=== PATIENT | female | born 1955 | race Two or more races ===

== ENCOUNTER 2017-12-30 07:09 | Emergency (ER) | payer OTHER ==
[~2017-12-30] VITALS: Ht 170.2 cm; Wt 72.6 kg
[2017-12-30] MEDS ORDERED: SYNTHROID200 MCG (07:44)
[2017-12-30] MEDS ORDERED: MEDROLPACK PO (11:49)
[2017-12-30] MEDS ORDERED: ZYRTEC10 MG PO (11:49)
== END 2017-12-30 11:58 | disposition home or self-care (01) ==
LOC: ER 07:09
DX: B34.9 Viral infection, unspecified (principal)

== ENCOUNTER 2018-10-07 12:07 | Emergency (ER) | payer OTHER ==
[~2018-10-07] VITALS: Ht 167.6 cm; Wt 68.0 kg
[~2018-10-07 12:07] MED LIST: MEDROLPACK PO; SYNTHROID200 MCG; ZYRTEC10 MG PO
== END 2018-10-07 18:47 | disposition home or self-care (01) ==
LOC: ER 12:07
DX: R42 Dizziness and giddiness (principal); R07.89 Other chest pain; M43.6 Torticollis

== ENCOUNTER 2022-02-11 09:30 | Inpatient (IN) | payer OTHER ==
[~2022-02-11] VITALS: Ht 167.6 cm; Wt 62.6 kg
[~2022-02-11 09:30] MED LIST changes: -SYNTHROID200 MCG; +SYNTHROID200 MCG PO
[2022-02-11] MEDS ORDERED: NORVASC5 MG PO (14:50)
[2022-02-18] MEDS ORDERED: PANTOPRAZOLE SO40 MG (09:04)
[2022-02-18] MEDS ORDERED: METFORMIN HCL500 M4 (09:04)
[2022-02-18] MEDS ORDERED: ROSUVASTATIN CA20 MG (09:04)
[2022-02-18] MEDS ORDERED: BUSPIRONE HCL5 MG (09:04)
[2022-02-18] MEDS ORDERED: MAXIMUM D3325 MCG (09:04)
[2022-02-18] MEDS ORDERED: QUETIAPINE FUMA25 MG (09:04)
[2022-02-18] MEDS ORDERED: SERTRALINE HCL25 MG (09:05)
[2022-02-20] MEDS ORDERED: PERCOCET 5-3251 EACH PO (12:11)
== END 2022-02-20 13:52 | disposition home or self-care (01) | DRG 330 ==
LOC: O/R 02-17 08:25 → OB/GYN 02-17 09:30 → SURH 02-17 17:18
PROVIDERS: ADMIT Surgery; ATTEND Surgery
PROC: 0DBP4ZZ Excision of Rectum, Percutaneous Endoscopic Approach (ICD-10-PCS; 2022-02-17)
PROC: 07BC4ZZ Excision of Pelvis Lymphatic, Percutaneous Endoscopic Approach (ICD-10-PCS; 2022-02-17)
PROC: 0DTF4ZZ Resection of Right Large Intestine, Percutaneous Endoscopic Approach (ICD-10-PCS; 2022-02-17)
PROC: 0DTN4ZZ Resection of Sigmoid Colon, Percutaneous Endoscopic Approach (ICD-10-PCS; principal; 2022-02-17 10:15)
DX: C18.0 Malignant neoplasm of cecum (principal); K92.1 Melena; R59.0 Localized enlarged lymph nodes; R10.9 Unspecified abdominal pain; D12.5 Benign neoplasm of sigmoid colon; D12.6 Benign neoplasm of colon, unspecified; I11.9 Hypertensive heart disease without heart failure; E11.9 Type 2 diabetes mellitus without complications

== ENCOUNTER 2022-03-20 05:55 | Day surgery (SDC) | payer OTHER ==
[~2022-03-20 05:55] MED LIST changes: +BUSPIRONE HCL5 MG; +MAXIMUM D3325 MCG; +METFORMIN HCL500 M4; +NORVASC5 MG PO; +PANTOPRAZOLE SO40 MG; +PERCOCET 5-3251 EACH PO; +QUETIAPINE FUMA25 MG; +ROSUVASTATIN CA20 MG; +SERTRALINE HCL25 MG
[2022-03-20] MEDS ORDERED: ULTRACET PO (10:13)
== END 2022-03-20 13:25 | disposition home or self-care (01) ==
LOC: CIR.AMB 05:55
PROVIDERS: ATTEND Surgery
DX: C18.0 Malignant neoplasm of cecum (principal); R59.0 Localized enlarged lymph nodes; I10 Essential (primary) hypertension; E78.00 Pure hypercholesterolemia, unspecified; E03.9 Hypothyroidism, unspecified; R73.03 Prediabetes; Z20.822 Contact with and (suspected) exposure to COVID-19
CPT/HCPCS: 36561; C1788